=== PATIENT | male | born 1950 | race Caucasian/White ===

== ENCOUNTER 2017-02-22 09:55 | Inpatient (IN) | payer OTHER ==
[~2017-02-22 09:55] MED LIST: ROPIVACAINE 0.2% 80 MG, EPINEPHrine 0.2 MG, KETOROLAC TROMETHAMINE 30 MG in BAG 0 ML IU ONE; TRANEXAMIC ACID 3,000 MG in NS 50 ML IRR ONE; TRANEXAMIC ACID 3,000 MG/50 ML BAG IRR ONE
[2017-02-22] MEDS ORDERED: ACETAMINOPHEN 325 MG TAB PO ONE (10:20)
[2017-02-22] MEDS ORDERED: ceFAZolin 2 GM/DEXTROSE 100 ML IV ONE (10:20)
[2017-02-22] MEDS ORDERED: FAMOTIDINE 20 MG TAB PO ONE (10:20)
[2017-02-22] MEDS ORDERED: DEXAMETHASONE 4 MG/ML VIAL IVP ONE (10:20)
[2017-02-22] MEDS ORDERED: LR 1,000 ML IV ONE (10:48)
[2017-02-22] MEDS ORDERED: LIDOCAINE 1% 2 ML INJ ID PRN (10:48)
--- NOTE | 2017-02-22 11:35 | PDHPUP ---
History & Physical Update H&P update statement: This history and physical update is based on an assessment of the patient which was completed after admission or registration (within 24 hours), but prior to the surgery/procedure. H&P update: H&P reviewed & patient examined, no change in patient's condition since H&P completed
[2017-02-22] MEDS ORDERED: MIDAZOLAM 2 MG/2 ML VIAL IVP ONE (11:53)
[2017-02-22] MEDS ORDERED: PROPOFOL/EMULSION 500 MG/50 ML BOTTLE IV ONE (12:25)
[2017-02-22] MEDS ORDERED: fentaNYL 100 MCG/2 ML INJ ONE (12:25)
[2017-02-22] MEDS ORDERED: DEXAMETHASONE 4 MG/ML VIAL ONE (12:37)
[2017-02-22] MEDS ORDERED: ONDANSETRON 4 MG/2 ML VIAL ONE (12:37)
[2017-02-22] MEDS ORDERED: LIDOCAINE 2% JELLY 5 ML TUBE ONE (12:38)
--- NOTE | 2017-02-22 13:01 | PDANEPAE ---
ANE History of Present Illness djd right hip s/f R PAM ANE Past Medical History - Cardiovascular History Hx Hypertension: No Hx Arrhythmias: No Hx Chest Pain: No Hx Coronary Artery / Peripheral Vascular Disease: No Hx CHF / Valvular Disease: No Hx Palpitations: No Cardiovascular History Comment: dyslipidemia - Pulmonary History Hx COPD: No Hx Asthma/Reactive Airway Disease: No Hx Recent Upper Respiratory Infection: No Hx Oxygen in Use at Home: No Hx Sleep Apnea: No Sleep Apnea Screening Result - Last Documented: Negative - Neurologic History Hx Cerebrovascular Accident: No Hx Seizures: Yes Hx Dementia: No Neurologic History Comment: last seizure 10 yrs ago - Endocrine History Hx Diabetes: No Endocrine History Comment: hypothyroid-borderline - Renal History Hx Renal Disorders: No - Liver History Hx Hepatic Disorders: No - Neurological & Psychiatric Hx Hx Neurological and Psychiatric Disorders: No Neurological / Psychiatric History Comment: on Cymbalta due to Lamictal - Cancer History Hx Cancer: No - Congenital Disorder History Hx Congenital Disorders: No - GI History Hx Gastrointestinal Disorders: No - Other Health History Other Health History: OA R hip - Chronic Pain History Chronic Pain: Yes (R hip) - Surgical History Prior Surgeries: L total hip. lumbar laminectomy. L4/L5 cervical fusion. bilat inguinal hernia sx ANE Review of Systems Review of Systems: - Exercise capacity METS (RN): 4 METS ANE Patient History - Allergies Allergies/Adverse Reactions: No Known Allergies Allergy (Verified 01/24/17 15:41) - Home Medications Home medications: home medication list seen and reviewed Home Medications: Atorvastatin Calcium [Lipitor 20 mg (*)] 20 mg PO DAILY 01/17/17 [Last Taken 07:00] DULoxetine [Cymbalta 20 MG (RX)] 20 mg PO DAILY 01/17/17 [Last Taken 02/22/17 07 :00] Glucosamine/Chondroitin [Glucosamine/Chondroitin (*)] 1 each PO DAILY 01/17/17 [ Last Taken 02/08/17] Levothyroxine [Synthroid 50 mcg (*)] 50 mcg PO DAILY06 01/17/17 [Last Taken 07:00] lamoTRIgine [LamICTAL 100 MG (*)] 300 mg PO DAILY 01/17/17 [Last Taken 02/22/17 07:00] - NPO status NPO Status: no food or drink >8 hours NPO Since - Liquids (Date): 02/22/17 NPO Since - Liquids (Time): 07:00 NPO Since - Solids (Date): 02/21/17 NPO Since - Solids (Time): 19:30 - Anes Hx Anes Hx: no prior problems - Smoking Hx Smoking Status: Never smoked Marijuana use: No - Alcohol Use Alcohol Use: Rarely ANE Labs/Vital Signs - Labs - CBC WBC: reviewed outside labs, okay to proceed - Vital Signs Blood Pressure: 143/66 Heart Rate: 58 Respiratory Rate: 16 O2 Sat (%): 94 Height: 187.96 cm Weight: 88.904 kg ANE Physical Exam - Airway Mallampati Score: Class 2 Mouth exam: normal dental/mouth exam - Pulmonary Pulmonary: no respiratory distress - Cardiovascular Cardiovascular: regular rate and rhythym - ASA Status ASA Status: II ANE Anesthesia Plan Anesthesia Plan: spinal (R/B/A explained and agrees to proceed) Urgent/Emergent Case: Nessa sol completed preop but documented later for safe timely pt care
[2017-02-22] MEDS ORDERED: PROPOFOL 200 MG/20 ML VIAL ONE (13:24)
[2017-02-22] MEDS ORDERED: fentaNYL 100 MCG/2 ML INJ IVP PRN (13:31)
[2017-02-22] MEDS ORDERED: ACETAMINOPHEN 500 MG TAB PO PRN (13:31)
[2017-02-22] MEDS ORDERED: HYDROCODONE/APAP 5/325 TAB PO PRN (13:31)
[2017-02-22] MEDS ORDERED: PROMETHAZINE HCL 25 MG/ML INJ IVP PRN ×2 (13:31→13:50)
[2017-02-22] MEDS ORDERED: MEPERIDINE 25 MG/ML SYR IVP PRN (13:31)
[2017-02-22] MEDS ORDERED: NALOXONE HCL 0.4 MG/ML INJ IVP PRN (13:31)
[2017-02-22] MEDS ORDERED: METOCLOPRAMIDE 10 MG/2 ML VIAL IVP PRN ×2 (13:31→13:50)
[2017-02-22] MEDS ORDERED: LABETALOL HCL 50 MG/10 ML SYR IVP PRN (13:31)
[2017-02-22] MEDS ORDERED: ONDANSETRON 4 MG/2 ML VIAL IVP PRN ×2 (13:31→13:50)
[2017-02-22] MEDS ORDERED: OXYCODONE/APAP 5/325 TAB PO PRN (13:31)
[2017-02-22] MEDS ORDERED: ALBUTEROL 3 ML DEYVIAL IH PRN (13:31)
[2017-02-22] MEDS ORDERED: LR 500 ML IV PRN (13:31)
[2017-02-22] MEDS ORDERED: DEXAMETHASONE 4 MG/ML VIAL IVP PRN (13:31)
[2017-02-22] MEDS ORDERED: PROMETHAZINE HCL 25 MG SUPPR PR PRN (13:50)
[2017-02-22] MEDS ORDERED: ONDANSETRON DISINTEGRATING 4 MG TAB PO PRN (13:50)
[2017-02-22] MEDS ORDERED: diphenhydrAMINE 25 MG CAP PO PRN (13:50)
[2017-02-22] MEDS ORDERED: BISACODYL 10 MG SUPP PR PRN (13:50)
[2017-02-22] MEDS ORDERED: TEMAZEPAM 15 MG CAP PO PRN (13:50)
[2017-02-22] MEDS ORDERED: MAGNESIUM HYDROXIDE 30 ML UDCUP PO PRN (13:50)
[2017-02-22] MEDS ORDERED: DIPHENOXYLATE/ATROPINE LOMOTIL 1 TAB PO PRN (13:50)
[2017-02-22] MEDS ORDERED: POLYETHYLENE GLYCOL 3350 17 GM PKT PO PRN (13:50)
[2017-02-22] MEDS ORDERED: LACTULOSE 20 GM/30 ML UDCUP PO PRN (13:50)
--- NOTE | 2017-02-22 13:50 | POSTOPPROG ---
Post Op Note Date of Operation: 02/22/17 Surgeon: [facility] Internship: [facility] Anesthesiologist: dr. russell Anesthesia: Spinal Pre-op Diagnosis: R hip OA Post-op Diagnosis: Right hip OA Indication: right hip pain due to OA that failed conservative measures Procedure: R PAM ant approach Findings: severe hip OA Inf/Abcess present in the surg proc area at time of surgery?: No EBL: 100-500
[2017-02-22] MEDS ORDERED: ceFAZolin 2 GM/DEXTROSE 100 ML IV SCH ×2 (14:00→20:00)
[2017-02-22] MEDS ORDERED: LR 1,000 ML IV SCH (14:00)
--- NOTE | 2017-02-22 14:17 | POSTANESTH ---
Post Anesthetic Evaluation Cardiovascular Status: Normal, Stable Respiratory Status: Normal, Stable Level of Consciousness/Mental Status: Can Participate in Eval Pain Control: Adequate, Prn Tx Ordered Nausea/Vomiting Control: Adequate, Prn Tx Ordered Complications Possibly Related to Anesthesia: None Noted
[2017-02-22 14:58] LABS: ALANINE AMINOTRANSFERASE 58 IU/L (21-72); ALKALINE PHOSPHATASE 70 IU/L (38-126); ANION GAP 13 mEq/L (8-16); ASPARTATE AMINOTRANSFERASE 54 IU/L (17-59); BILIRUBIN,TOTAL 0.6 mg/dL (0.1-1.4); CALCIUM 10.1 mg/dL (8.5-10.4); CARBON DIOXIDE 26 mEq/l (22-31); CHLORIDE 101 mEq/L (97-110); GLOMERULAR FILTRATION RATE > 60; GLUCOSE 91 mg/dL (70-100); SODIUM 140 mEq/L (134-144); TOTAL PROTEIN 7.9 g/dL (6.3-8.2)
[2017-02-22] MEDS: CYCLOBENZAPRINE 10 MG TAB PO PRN (16:14)
[2017-02-22] MEDS: oxyCODONE IR 5 MG TAB PO PRN ×2 (16:14→18:09)
[2017-02-22] MEDS: ACETAMINOPHEN 325 MG TAB PO SCH (18:09)
[2017-02-22] MEDS: ASPIRIN 325 MG TAB PO SCH (20:21)
[2017-02-22] MEDS: FAMOTIDINE 20 MG TAB PO SCH (20:21)
[2017-02-22] MEDS: SENNOSIDES/DOCUSATE SODIUM TAB PO SCH (20:22)
[2017-02-22] MEDS: ceFAZolin 2 GM in D5W 100 ML IV SCH (20:22)
[2017-02-23] MEDS: ACETAMINOPHEN 325 MG TAB PO SCH ×3 (00:06→11:39)
[2017-02-23] MEDS: ceFAZolin 2 GM in D5W 100 ML IV SCH (04:30)
[2017-02-23 04:32] VITALS: RESP 16
[2017-02-23 05:42] LABS: HEMOGLOBIN 13.7 g/dL (13.7-17.5)
[2017-02-23] MEDS ORDERED: LEVOTHYROXINE 50 MCG TAB PO SCH (06:00)
[2017-02-23] MEDS: oxyCODONE IR 5 MG TAB PO PRN (08:04)
[2017-02-23] MEDS: SENNOSIDES/DOCUSATE SODIUM TAB PO SCH (08:06)
[2017-02-23] MEDS: ASPIRIN 325 MG TAB PO SCH (08:07)
[2017-02-23] MEDS: CYCLOBENZAPRINE 10 MG TAB PO PRN (08:07)
[2017-02-23] MEDS: FAMOTIDINE 20 MG TAB PO SCH (08:07)
--- NOTE | 2017-02-23 08:59 | SOAPPROG ---
SOAP Progress Note Assessment/Plan: Assessment: Patient is doing well POD 1 s/p R PAM Pain management: pain is well controlled on oral pain meds. VTE ppx: recommend aspirin daily for 3 weeks, cont JENNIFER and SCDs Anemia: level is expected initially postop. Asymptomatic. Continue to monitor D/c planning: d/c to home today pending release from PT Plan: 02/23/17 08:58 Subjective: Uvaldo is doing well today, denies SOB, chest pain and N/v Objective: Vital Signs Temp Pulse Resp BP Pulse Ox 36.5 C 71 16 115/57 L 93 02/23/17 07:54 02/23/17 07:54 02/23/17 07:54 02/23/17 07:54 02/23/17 07:54 Laboratory Results 02/23/17 04:50 02/22/17 14:31 02/22/17 02/23/17 02/24/17 05:59 05:59 05:59 Intake Total 1550 Output Total 1300 Balance 250 RLE: incision dressing is clean and dry, NVI, +pf/df ICD10 Worksheet Patient Problems: Problems Problem Status Onset Primary localized osteoarthritis of right hip Acute
[2017-02-23] MEDS ORDERED: DULoxetine 20 MG CAP PO SCH (09:00)
[2017-02-23] MEDS ORDERED: lamoTRIgine 100 MG TAB PO SCH (09:00)
[2017-02-23] MEDS ORDERED: ATORVASTATIN CALCIUM 20 MG TAB PO SCH (09:00)
[2017-02-23] MEDS ORDERED: FLU VACC QS 2017-18 (3YR+)/PF 0.5 ML SYR (FLUARIX QUAD) IM ONE (11:00)
[2017-02-23 11:29] VITALS: BP 112/63; PULSE 79; TEMP 98.4; O2SAT 92
--- NOTE | 2017-02-23 12:41 | GOP ---
[f rep st] OPERATIVE REPORT DATE OF OPERATION: 02/22/2017 SURGEON: Ester Nash MD NURSING SERVICE ADMINISTRATOR: GRAHAM Chen ANESTHESIA: Spinal. PREOPERATIVE DIAGNOSIS: Right hip osteoarthritis. POSTOPERATIVE DIAGNOSIS: Right hip osteoarthritis. PROCEDURE PERFORMED: Right total hip arthroplasty with x-ray. FINDINGS: ESTIMATED BLOOD LOSS: 200 cc. INDICATIONS: The patient has progressively worsening arthritis of the hip which has failed medical m anagement. The patient understands the treatment options including continued non-operative care and has selected surgical intervention. The patient has decided to undergo total hip arthroplasty via th e direct anterior approach, understanding the risks of the procedure including, but not limited to, n eurovascular injury, infection, persistent pain, component wear and loosening, deep venous thrombosis , pulmonary embolism, limb length inequality, hip instability (including dislocation), and intra-oper ative fractures. DESCRIPTION OF PROCEDURE: After proper identification of the patient including verification and navdeep ing the surgical site, the patient was brought to the operating room and placed in the supine positio n. All bony prominences were well padded. Anesthesia was induced without complication and intraveno us prophylactic antibiotics were administered prior to skin incision. The operative leg was placed in the Trumpf Arch table extension and the well leg in a Yellofin leg ho lder. The patient was prepped and draped in the usual sterile fashion. The C-arm was draped for int ra-operative fluoroscopy to check acetabular position, femoral component position including leg lengt h and femoral offset. Attention was then drawn to surgical exposure of the hip. An incision was made with a #10 Bard Bridget r blade starting 3 cm lateral and 3 cm distal to the anterior superior iliac spine measuring 8-10 cm and coursing distally toward the greater trochanter. The skin and subcutaneous tissues were divided sharply down to the fascia charisma. The fascia charisma was incised in line with the skin incision exposing the underlying tensor fascia charisma muscle. The muscle was bluntly elevated from the fascia and the f irst extracapsular Cobra retractor was placed laterally at the junction of the superior femoral neck and greater trochanter. The lateral femoral circumflex vessels were identified, cauterized, and divi ded with the Aquamantys bipolar cautery. The deep investing fascia of the TFL was divided to allow p yumiko mobilization of the muscle preventing damage during the retraction. The reflected head of the rectus femoris muscle was elevated off the anterior hip capsule and a medial Cobra retractor was plac ed just proximal to the lesser trochanter. The anterior capsulotomy was made sharply from the superolateral acetabulum to the saddle junction of the superior femoral neck and greater trochanter, then coursing inferomedial towards the lesser troc hanter. The retractors were then placed in the intracapsular position for femoral neck osteotomy. C orresponding to pre-operative templating, the osteotomy was made with the oscillating saw carefully p rotecting the greater trochanter and soft tissues. The femoral head was removed from the acetabulum with a corkscrew and confirmed to be severely arthritic with exposed bone, deformity and osteophytes. Similar findings were confirmed in the acetabulum. The Arch table extension was then placed in 40 degrees external rotation. Attention was then drawn to the acetabular preparation. After placement of the anterior and posterio r Cobra retractors outside the labrum and intracapsular, the circumferential labrum was removed sharp ly. The foveal contents were then removed and hemostasis obtained with cautery. The first reamer selected was sized using the removed femoral head. Reaming began with medialization and then commenced in 2 mm increments at 45 degrees of abduction and 15 degrees of anteversion using fluoroscopic navigation. Reaming ceased 1 mm less than the definitive acetabular component and gabby esponded to the pre-operative templating. The final acetabular component was inserted using fluorosc opy to achieve proper orientation yielding excellent purchase and stability in the acetabulum. The f inal acetabular liner was then placed and its seating confirmed. Attention was then turned to the femur. The Arch table extension was placed in extension and adducti on, delivering the osteotomized femoral neck into the wound. A 2-pronged femoral elevator was placed at the calcar and another at the tip of the greater trochanter. The posterolateral capsule was rele ased with cautery allowing mobilization of the femur lateral and anterior for preparation. The exter nal rotators were visualized and preserved. A curette and rongeur were used to open the starting poi nt for broaching. Serial broaching started with the #0 broach and ended with the broach that exhibit ed excellent fit in the proximal femur. A change in pitch during mallet strikes was accompanied by t he inability to advance the broach any further. The trial reduction was performed and fluoroscopic n avigation was utilized to check limb length. Adjustments were made to equalize limb length according ly. After the final trials were accepted they were removed and the wound was copiously lavaged. The femo ral component was seated to the same depth as the final broach and the femoral head was impacted onto the clean trunnion. The hip was then reduced for the final time and once more fluoroscopy was used to check that limb length equality was achieved. The wound was irrigated and closed in layers, the fascia charisma with 2-0 Quill, the subcutaneous tissue with 2-0 Quill, and the skin with Dermabond. Sterile dressings were applied. Final sharps and spon ge counts were accurate. The patient was then transferred to a hospital bed and brought to the [facility] room in stable condition. IMPLANTS: Accolate II, size 7 at 127. Acetabular component a 60 mm Tritanium. The liner is a Tride nt X3, 36 mm. The head is a Biolox Delta 36 mm +0. /[id number]/MODL
--- NOTE | 2017-02-23 13:16 | ASDISCHSUM ---
Discharge Information Plan Status:Home with No Needs Medically Cleared to Leave: Discharge Date:02/23/2017 12:14 PM CM D/C Disposition:Home, Routine, Self-Care ADT D/C Disposition:Home, Routine, Self-Care Projected Discharge Date:02/23/2017 12:14 PM Transportation at D/C: Discharge Delay Reason: Follow-Up Date:02/23/2017 12:14 PM Discharge Slot: Final Diagnosis: Placement Information Patient Contact Information Contact Name:DIANEMORRISON Relationship: Address: City: [facility] Phone: [facility] Code: Email: Financial Information Financial Class: Primary Plan Desc:MEDICARE INPATIENT Primary Plan Number:[id number] Secondary Plan Desc:[employer]IG[employer] Secondary Plan Number:[id number] Assessment Information Intervention Information
--- NOTE | 2017-02-23 23:04 | GDS ---
[f rep st] DISCHARGE SUMMARY ADMISSION DIAGNOSIS: Right hip osteoarthritis. DISCHARGE DIAGNOSIS: Right hip osteoarthritis. PROCEDURE: Right total hip arthroplasty. VTE PROPHYLAXIS: Aspirin recommended 3 weeks daily. BRIEF DESCRIPTION OF HOSPITAL STAY: Patient was admitted for an elective joint arthroplasty. The pa williams tolerated the procedure well and has passed physical therapy. The patient was given appropriat e antibiotic prophylaxis and venous thromboembolism prophylaxis. The patient's pain was well control led on oral pain medication, patient was holding down food, and had urinated. Decision was made to d ischarge the patient. The patient was given post-operative prescriptions pre-operatively. PLAN: Please follow up as scheduled with Dr. Nash at [facility] March 13 at 11:45 a.m. /[id number]/MODL
== END 2017-02-23 12:14 | disposition home or self-care (01) | DRG 470 ==
LOC: F3E 09:55 → F3N 15:29
PROVIDERS: ADMIT Orthopaedic Surgery; ATTEND Orthopaedic Surgery
PROC: 0SR904Z Replacement of Right Hip Joint with Ceramic on Polyethylene Synthetic Substitute, Open Approach (ICD-10-PCS; principal; 2017-02-22 12:15)
DX: M16.11 Unilateral primary osteoarthritis, right hip (principal); E78.5 Hyperlipidemia, unspecified; E03.9 Hypothyroidism, unspecified; Z23 Encounter for immunization
CPT/HCPCS: 97116-GP; 97161-GP; 97165-GO; G0008; G8978-GP-CI; G8979-GP-CI; G8980-GP-CI; G8987-GO-CI; G8988-GO-CI; G8989-GO-CI; J0171; J0690; J1100; J1885; J2250; J2405; J2704; J2795; J3010